=== PATIENT | male | born 1970 | race Caucasian/White ===

== ENCOUNTER 2017-02-04 14:56 | Emergency (ER) | payer SELFPAY ==
[~2017-02-04] VITALS: Ht 182.9 cm; Wt 102.1 kg
[2017-02-04 14:56] VITALS: BP_SYST 156
[2017-02-04] MEDS ORDERED: KETOROLAC TROMETHAMINE 60 MG/2 ML VIAL IM ONE (15:15)
[2017-02-04] MEDS ORDERED: CITALOPRAM HYDROBROMIDE 20 MG TABLET PO SCH (16:00)
[2017-02-04] MEDS ORDERED: ASPIRIN 325 MG TABLET PO ONE (16:00)
[2017-02-04] MEDS ORDERED: ALPRAZolam 0.25 MG TABLET PO ONE (16:00)
[2017-02-04] MEDS ORDERED: CITALOPRAM HYDROBROMIDE 20 MG TABLET PO ONE (16:30)
[2017-02-04 17:30] VITALS: BP_SYST 153
== END 2017-02-04 17:30 ==
LOC: SED 14:56
DX: F41.9 Anxiety disorder, unspecified (principal); Z88.2 Allergy status to sulfonamides
CPT/HCPCS: 93005; 96372; 99284; J1885

== ENCOUNTER 2019-09-17 09:13 | Emergency (ER) | payer BC, MEDICAID ==
[~2019-09-17] VITALS: Ht 182.9 cm; Wt 97.1 kg
[2019-09-17 09:20] VITALS: BP_SYST 124
--- NOTE | 2019-09-17 09:20 | NUR ---
Patient to ER bed 5 to gown for evaluation. Side rails up. Report given to NARINDER Posey.
--- NOTE | 2019-09-17 09:23 | NUR ---
Patient arrived in the ED accompanied by her sister, c/o right-sided headache and pressure with nausea and vomiting that started yesterday - Taking Ibuprofen, no relief for patient. Patient denied any chest pain or shortness of breath. Denied any fevers or chills. Patient is alert and oriented x4, respirations even and unlabored, speaking in full sentences, and ambulating with a steady gait. VSS, pain level 10/10. Informed of the approximate wait time. Instructed to notify ED staff for any changes in condition or worsening of symptoms. Patient verbalized understanding. Addendum: 09/17/19 at 1040 by [email or web address] Patient arrived in the ED c/o right leg pain and swelling that started yesterday - Taking Colchicine, no relief for patient. Patient denied any chest pain or shortness of breath. Denied any fevers, chills, nausea or vomiting. Patient is alert and oriented x4, respirations even and unlabored, speaking in full sentences, and ambulating with a steady gait. VSS, pain level 7-8/10. Informed of the approximate wait time. Instructed to notify ED staff for any changes in condition or worsening of symptoms. Patient verbalized understanding.
[2019-09-17] MEDS ORDERED: NACL 0.9% 1,000 ML IV ONE (09:24)
--- NOTE | 2019-09-17 09:30 | NUR ---
Patient ambulated to the bathroom with a steady gait. Urine specimen collected and dropped off at the lab.
--- NOTE | 2019-09-17 09:31 | NUR ---
technology internship at bedside collecting blood specimen as ordered by Dr. Landry. Patient tolerated the procedure well.
--- NOTE | 2019-09-17 09:35 | NUR ---
ER Dr. Landry at bedside examining patient.
--- NOTE | 2019-09-17 09:40 | NUR ---
# 20 gauge angiocath placed to RAC. Use of asceptic technique. Opsite placed over site. Blood return noted. Flushed with 10 cc of normal saline. No evidence of infiltration noted. Patient tolerated well.
[2019-09-17 09:51] LABS: BASOPHILS % (AUTO) 0.4 % (0.0-2.0); EOSINOPHILS # (AUTO) 0.1 K/uL (0.0-0.4); EOSINOPHILS % (AUTO) 1.7 % (0.0-4.0); HEMATOCRIT 43.7 % (36-54); HEMOGLOBIN 14.5 g/dL (14.0-18.0); LYMPHOCYTES % (AUTO) 24.4 % (20.5-51.5); MEAN CORPUSCULAR HEMOGLOBIN 30 pg (27-31); MEAN CORPUSCULAR HGB CONC 33 % (32-36); MEAN CORPUSCULAR VOLUME 92 fL (79.0-98.0); MONOCYTES # (AUTO) 0.4 K/uL (0.0-1.0); MONOCYTES % (AUTO) 5.3 % (1.7-9.3); NEUTROPHILS # (AUTO) 5.5 K/uL (1.8-7.7); NEUTROPHILS % (AUTO) 68.2 % (40.0-70.0); PLATELET COUNT (AUTO) 238 K/uL (130-430); RED BLOOD CELL COUNT(AUTO) 4.78 MIL/uL (4.2-6.2); RED CELL DISTRIBUTION WIDTH 13.4 % (9.0-15.0)
[2019-09-17 09:57] LABS: BILIRUBIN,URINE NEGATIVE (NEGATIVE); BLOOD, URINE NEGATIVE (NEGATIVE); CLARITY/URINE CLEAR (CLEAR); COLOR,URINE YELLOW (YELLOW); GLUCOSE,URINE NEGATIVE (NEGATIVE); KETONES,URINE NEGATIVE (NEGATIVE); LEUKOCYTE ESTERASE ,URINE NEGATIVE (NEGATIVE); NITRITE, URINE NEGATIVE (NEGATIVE); PH,URINE 6.5 (5.0-8.0); PROTEIN URINE NEGATIVE (NEGATIVE); UROBILINOGEN,URINE 0.2 (0.2-1.0)
[2019-09-17 10:00] LABS: CALCIUM 9.1 mg/dL (8.4-11.0); CREATININE 1.26 mg/dL (0.55-1.30)
[2019-09-17 10:04] LABS: ALBUMIN 3.8 g/dL (3.4-4.8); TOTAL BILIRUBIN 0.6 mg/dL (0.0-1.0); URIC ACID 6.9 mg/dL (2.4-7.0)
--- NOTE | 2019-09-17 11:13 | NUR ---
Discontinued peripheral IV as ordered by Dr. Landry. Catheter intact. Patient tolerated the procedure well.
[2019-09-17 11:15] VITALS: BP_SYST 118
--- NOTE | 2019-09-17 11:15 | NUR ---
Patient given written and verbal discharge instructions and verbalizes understanding. ER MD discussed with patient the results and treatment provided. Patient in stable condition. ID arm band removed. IV catheter removed intact and dressing applied, no active bleeding. Rx of Allopurinol and Indomethacin given. Patient educated on pain management and to follow up with PMD. Pain Scale 0/10. Opportunity for questions provided and answered. Medication side effect fact sheet provided.
== END 2019-09-17 11:15 | disposition home or self-care (01) ==
LOC: SED 09:13
DX: M79.675 Pain in left toe(s) (principal); M79.89 Other specified soft tissue disorders; Z88.2 Allergy status to sulfonamides
CPT/HCPCS: 36415; 80053; 81003; 83690; 84550; 85025; 99283; J7030

== ENCOUNTER 2021-07-21 11:11 | Emergency (ER) | payer MEDICAID ==
[~2021-07-21] VITALS: Ht 182.9 cm; Wt 99.8 kg
[2021-07-21 11:40] VITALS: BP_SYST 142
[2021-07-21] MEDS ORDERED: BACLOFEN 10 MG TABLET PO ONE (12:45)
[2021-07-21] MEDS ORDERED: LIDOCAINE PATCH 5% 1 EA TP ONE ×2 (12:45→13:15)
[2021-07-21] MEDS ORDERED: ACETAMINOPHEN 500 MG TABLET PO ONE (12:45)
[2021-07-21] MEDS ORDERED: ACET-2634 PO (14:12)
[2021-07-21] MEDS ORDERED: CYCL10TA24 PO (14:12)
[2021-07-21] MEDS ORDERED: LIDO1ADH5 TP (14:14)
[2021-07-21 14:31] VITALS: BP_SYST 142
== END 2021-07-21 14:31 | disposition home or self-care (01) ==
LOC: SED 11:11
DX: S40.011A Contusion of right shoulder, initial encounter (principal); Z88.2 Allergy status to sulfonamides; Z79.899 Other long term (current) drug therapy; Y35.813A Legal intervention involving manhandling, suspect injured, initial encounter; Y93.89 Activity, other specified; Y92.89 Other specified places as the place of occurrence of the external cause; Y99.8 Other external cause status
CPT/HCPCS: 73030; 99284